=== PATIENT | female | born 1985 | race Caucasian/White ===

== ENCOUNTER → 2016-07-06 | Outpatient (CLI) | payer OTHER ==
[~2016-07-06] VITALS: Ht 162.6 cm; Wt 117.4 kg
[~2016-07-06] MED LIST: ACET-1256 PO; CHOL1000 PO; GABA600T PO; GABA800T PO; GLC/500 PO; HYDR-5688 PO; KPP/1000 PO; TOPI200T14 PO
[2016-07-06 13:46] VITALS: BP 121/75; PULSE 111; Ht 162.6 cm; Wt 117.4 kg
== END | disposition home or self-care (01) ==
LOC: C.NEUR 12:50
PROVIDERS: ATTEND Internal Medicine Pulmonary Disease
DX: R06.83 Snoring (principal); G40.909 Epilepsy, unspecified, not intractable, without status epilepticus; R53.82 Chronic fatigue, unspecified; R06.81 Apnea, not elsewhere classified; F51.12 Insufficient sleep syndrome; G47.00 Insomnia, unspecified

== ENCOUNTER 2016-07-12 18:08 | Emergency (ER) | payer OTHER ==
[~2016-07-12] VITALS: Ht 162.6 cm; Wt 108.0 kg
[~2016-07-12 18:08] MED LIST changes: -ACET-1256 PO; -CHOL1000 PO; -GABA800T PO; -GLC/500 PO; -KPP/1000 PO; -TOPI200T14 PO
[2016-07-12 18:12] VITALS: TEMP 36.8; Ht 162.6 cm; Wt 108.0 kg
[2016-07-12] MEDS ORDERED: CHOL1000 PO (18:27)
[2016-07-12] MEDS ORDERED: KPP/1000 PO (18:27)
[2016-07-12] MEDS ORDERED: OXYCODONE HCL IR 5 MG TAB (IMMEDIATE RELEASE) PO STA (18:36)
[2016-07-12] MEDS ORDERED: GABA800T PO (18:47)
[2016-07-12] MEDS ORDERED: GLC/500 PO (19:06)
[2016-07-12] MEDS ORDERED: TOPI200T14 PO (19:06)
[2016-07-12] MEDS ORDERED: ACET-1256 PO (19:06)
--- NOTE | 2016-07-12 20:04 | DIAGNOSTIC IMAGING REPORT ---
MRI OF THE LUMBAR SPINE WITHOUT CONTRAST CLINICAL HISTORY: Severe lower back and left leg pain. Left leg numbness. COMPARISON STUDY: No previous studies for comparison. TECHNIQUE: Utilizing a 1.5 Ana magnet and dedicated coil, multiplanar, multiecho imaging of the lumbar spine was performed without IV contrast. FINDINGS: For purposes of numbering on this exam, the L5-S1 disc space is assigned to axial image 26 7 of 30. There is slight retrolisthesis of L5 on S1. Alignment is otherwise anatomic. There is cortical irregularity with signal abnormality of the anterior aspect of the superior endplate of L4 which is chronic. This may be developmental or degenerative. The conus terminates at the lower L1 level. There is no intracanalicular mass or fluid collection. Paravertebral soft tissues are unremarkable. There is no marrow edema or marrow replacement. There is desiccation of the L3-L4 disc. There is mild disc space narrowing at L5-S1. L1-2: The central canal and neural foramen are patent. L2-3: The central canal and neural foramen are patent. L3-4: The central canal and neural foramen are patent. L4-5: The central canal and neural foramen are patent. L5-S1: The central canal and neural foramen are patent. IMPRESSION: 1. No acute abnormality of the lumbar spine by MRI. 2. Minimal multilevel degenerative disc disease of the lumbar spine at the L3-L4 and L5-S1 levels. No central canal or neural foraminal stenosis. 3. No disc herniation. Electronically signed by: Iglesia Leon M.D. 07/12/2016 8:02 PM Dictated Date/Time: 07/12/2016 7:59 PM
[2016-07-12 20:41] VITALS: BP 127/63; PULSE 90; O2SAT 99
--- NOTE | 2016-07-12 20:42 | EMERGENCY ROOM VISIT NOTE ---
History Report prepared by Elver: Leonor Rocha Under the Supervision of: Dr. Flavio Mar D.O. First contact with patient: 18:29 Chief Complaint: BACK PAIN Stated Complaint: SEVERE BACK PAIN,LF SIDE IS NUMB History of Present Illness The patient is a 31 year old female who presents to the Emergency Room with complaints of persistent lower back pain that started about one month ago. She rates her discomfort as an 8/10 in severity. She is having difficulty ambulating secondary to the pain. The pain is not relieved with Flexeril. The patient states that she began experiencing the pain after she shoveled snow in the recent heavy snowstorm. She did not experience any falls when she was shoveling snow. The patient is also experiencing left lower extremity numbness and she states that her entire left leg is numb. She denies any urinary symptoms. The patient has established a relationship with [facility] for this pain. She has been undergoing physical therapy and they gave her a back brace, but neither has offered her any relief. The patient states that after the pain started she received a CT scan at the [facility] in [place], but she is unsure of the results. Otherwise, the patient has not received any imaging of her back. The patient has a follow-up appointment with [facility] in three weeks. The patient states that she has a history of epilepsy and chronic migraines. She adds that she is concerned that she might experience a seizure secondary to the pain. Source of History: patient Onset: about one month ago Position: back (lower) Symptom Intensity: 8/10 Timing: other (persistent) Modifying Factors (Relieving): other (none) Associated Symptoms: + numbness (left lower extremity), No urinary symptoms Review of Systems See HPI for pertinent positives & negatives. A total of 10 systems reviewed and were otherwise negative. Past Medical & Surgical Medical Problems: (1) Migraine (2) Seizure Surgical Problems: (1) H/O: hysterectomy Family History Cancer Diabetes mellitus FH: heart disease FHx: gallbladder disease FHx: lung disease Hypertension Kidney disease Kidney stones Seizures Social History Smoking Status: Current Every Day Smoker Alcohol Use: none Marital Status: single Housing Status: lives with family Occupation Status: unemployed Current/Historical Medications Scheduled Cholecalciferol (Vitamin D3), 1,000 INTER.UNIT PO BID Gabapentin (Neurontin), 800 MG PO TID Levetiracetam (Keppra), 1,000 MG PO BID Metformin Hcl (Glucophage), 500 MG PO BID Topiramate (Topamax), 200 MG PO BID Scheduled PRN Acetaminophen (Tylenol), 1,000 MG PO Q6H PRN for Pain Allergies Coded Allergies: Gil (Verified Allergy, Unknown, 08/14/07) Coconut (Verified Allergy, Unknown, 08/14/07) Codeine (Verified Allergy, Unknown, 06/20/09) Ketorolac Tromethamine (Verified Allergy, Unknown, Unknown, 01/29/16) Sulfa Drugs (Verified Allergy, Unknown, 06/20/09) HIVES Tramadol (Verified Allergy, Unknown, Unknown, 01/29/16) Physical Exam Vital Signs Date Time Temp Pulse Resp B/P Pulse Ox O2 Delivery O2 Flow Rate FiO2 07/12/16 20:41 90 16 127/63 99 07/12/16 18:12 36.8 95 18 133/84 96 Room Air Physical Exam GENERAL: Patient is awake, alert, and in no acute distress. Patient is resting comfortably and showing no signs of anxiety EYES: The conjunctivae are clear. The pupils are round and reactive. EARS, NOSE, MOUTH AND THROAT: The nose is without any evidence of any deformity. Mucous membranes are moist tongue is midline NECK: The neck is nontender and supple. RESPIRATORY: Normal respiratory effort is noted there is no evidence of wheezing rhonchi or rales CARDIOVASCULAR: Regular rate and rhythm noted there no murmurs rubs or gallops normal S1 normal S2 GASTROINTESTINAL: The abdomen is soft. Bowel sounds are present in all quadrants. Abdomen is nontender PELVIS: The Pelvis is stable. No tenderness to palpation is noted. BACK: Midline lumbar tenderness to palpation no step-off noted range of motion elicited pain. No CVA tenderness to percussion. MUSCULOSKELETAL/EXTREMITIES: There is no evidence of gross deformity full range of motion is noted in the hips and shoulders SKIN: There is no obvious evidence of any rash. There are no petechiae, pallor or cyanosis noted. NEUROLOGIC: Patient is awake alert and oriented x3. Patellar tendon reflexes are 1+ bilaterally. Achilles reflex 1+ bilaterally. Great toe raises are symmetric. Medical Decision & Procedures ER Provider Diagnostic Interpretation: MRI results as stated below per my review and radiologist interpretation. MRI OF THE LUMBAR SPINE WITHOUT CONTRAST IMPRESSION: 1. No acute abnormality of the lumbar spine by MRI. 2. Minimal multilevel degenerative disc disease of the lumbar spine at the L3-L4 and L5-S1 levels. No central canal or neural foraminal stenosis. 3. No disc herniation. Electronically signed by: Iglesia Leon M.D. 07/12/2016 8:02 PM Dictated Date/Time: 07/12/2016 7:59 PM Medications Administered Medications (Trade) Dose Ordered Sig/Gene Route Start Time Stop Time Status Last Admin Dose Admin Oxycodone HCl (Roxicodone Immediate Rel Tab) 10 mg NOW STAT PO 07/12/16 18:36 07/12/16 18:38 DC 07/12/16 18:57 10 MG ED Course 1831: The patient was evaluated in room B6. A complete history and physical examination were performed. 1835: Ordered Oxycodone HCl 10 mg PO 2011: Upon reevaluation, the patient is doing well. I discussed the results and treatment plan with her. She verbalized agreement of the treatment plan. She was discharged home. Medical Decision Prior records/ancillary studies reviewed. Triage Nursing notes reviewed. The patient's history was concerning for back pain. Differential diagnosis: Etiologies such as musculoskeletal, disc herniation, fracture, aortic disease, metastatic disease, cord compression, discitis, infection, renal colic, gastrointestinal, acute exacerbation of chronic back pain, sciatica, cauda equina, as well as others were entertained. The patient is a 31-year-old female who presented to the emergency department for an evaluation of severe low back pain radiating to her left leg. She was seen previously for the same pain. She states that she had a CAT scan which showed abnormalities. The patient did not have any focal neurologic deficits. She was able to ambulate without difficulty. The patient was treated with pain medication in the emergency department with some relief. The patient had an MRI which did not show any acute abnormality or disc herniation. The patient states that she has been on steroids in the past for this and they have not helped. The patient was encouraged to continue all medications as prescribed and rest. She was also encouraged to call her primary care physician schedule a follow-up appointment. She was also encouraged to continue with physical therapy and return to the emergency Department immediately if symptoms change worsen or the need arises. [place] Drug Monitoring Program Search Results: patient reviewed within database, see additional documentation Drug Monitoring Findings: The patient received two different prescriptions for [place] in June. Impression Primary Impression: Low back pain Additional Impression: Sciatica Scribe Attestation The scribe's documentation has been prepared under my direction and personally reviewed by me in its entirety. I confirm that the note above accurately reflects all work, treatment, procedures, and medical decision making performed by me. Departure Information Dispostion Home / Self-Care Referrals Sandi Pérez D.O. (PCP) Forms HOME CARE DOCUMENTATION FORM, IMPORTANT VISIT INFORMATION Patient Instructions My [facility] Additional Instructions Call your family to schedule a follow-up appointment. Rest and avoid any strenuous activity. Follow-up with your orthopedic this week for reevaluation. Problem Qualifiers Primary Impression: Low back pain Chronicity: unspecified Back pain laterality: midline Sciatica presence: with sciatica Sciatica laterality: sciatica of left side Qualified Codes: M54.42 - Lumbago with sciatica, left side Additional Impression: Sciatica Laterality: left Qualified Codes: M54.32 - Sciatica, left side
== END 2016-07-12 21:03 | disposition home or self-care (01) ==
LOC: C.EDB 18:10
DX: M54.42 Lumbago with sciatica, left side (principal); G40.909 Epilepsy, unspecified, not intractable, without status epilepticus; Z90.710 Acquired absence of both cervix and uterus; Z82.49 Family history of ischemic heart disease and other diseases of the circulatory system; Z83.3 Family history of diabetes mellitus; Z82.0 Family history of epilepsy and other diseases of the nervous system; F17.210 Nicotine dependence, cigarettes, uncomplicated; Z79.899 Other long term (current) drug therapy

== ENCOUNTER 2017-02-08 21:57 | Emergency (ER) | payer OTHER ==
[~2017-02-08] VITALS: Ht 162.6 cm; Wt 116.6 kg
[~2017-02-08 21:57] MED LIST changes: +ACET-1256 PO; +CHOL1000 PO; -GABA600T PO; +GABA800T PO; +GLC/500 PO; -HYDR-5688 PO; +KPP/1000 PO; +TOPI200T14 PO
[2017-02-08 22:00] VITALS: TEMP 36.6; Ht 162.6 cm; Wt 116.6 kg
[2017-02-08] MEDS ORDERED: SODIUM CHLORIDE 0.9% 1000ML 1,000 ML IV ONE (22:30)
[2017-02-08 23:09] LABS: BASO % 0.4 %; BASO ABS # 0.03 K/uL (0-0.2); COMPLETE YES; EOS % 2.1 %; HEMATOCRIT 37.7 % (37-47); IG% 0.1 %; LYMPH % 40.3 %; LYMPH ABS # 2.84 K/uL (1.2-3.4); MEAN CELL VOLUME 80.7 fL (80-100); MEAN CORPUSCULAR HEMOGLOBIN 25.9 pg (25-34); MEAN CORPUSCULAR HGB CONC 32.1 g/dl (32-36); MEAN PLATELET VOLUME 10.1 fL (7.4-10.4); MONO % 6.7 %; NEUT % 50.4 %; PLATELET COUNT 240 K/uL (130-400); RED BLOOD COUNT 4.67 M/uL (4.2-5.4); WHITE BLOOD COUNT 7.04 K/uL (4.8-10.8)
[2017-02-08 23:12] LABS: PROTHROMBIN TIME (PATIENT) 10.6 SECONDS (9.0-12.0)
[2017-02-08 23:19] LABS: BUN/CREATININE RATIO 18.7 (10-20); CALCIUM 8.6 mg/dl (8.5-10.1); CREATININE 0.73 mg/dl (0.60-1.20); POTASSIUM 3.8 mmol/L (3.5-5.1)
[2017-02-08 23:29] LABS: ALB/GLOB RATIO 0.9 (0.9-2); THYROID STIMULATING HORMONE 2.15 uIu/ml (0.300-4.500)
[2017-02-09 01:23] VITALS: BP 132/70; PULSE 78; O2SAT 99
--- NOTE | 2017-02-09 04:15 | EMERGENCY ROOM VISIT NOTE ---
History First contact with patient: 22:04 Chief Complaint: VAGINAL BLEEDING Stated Complaint: HEAVY BLEEDING,SEVERE PAIN,DIZZY,WEAK History of Present Illness The patient is a 31 year old female who presents to the Emergency Room with complaints of vaginal bleeding for the past 4 or 5 days. The patient states that she has a history of polycystic ovarian syndrome, and typically has irregular menses. She began with some cramping and normal menstrual symptoms 5 days ago. She had light bleeding for 1-2 days, then heavy bleeding for 2 days. The patient states that her normal cycle only lasts for about 4 days when it occurs. She states that today, on day 5, she has been soaking through 1 pad every 20 minutes, and now feels lightheaded and weak. The patient denies chance of as she had a tubal ligation. She has not had fever, chills , chest pain, chest discomfort, or significant abdominal pain. She has taken Tylenol for her symptoms without improvement. She states that she called the on -call PAROLE DIRECTOR for her group, and was referred to the ER for evaluation. She rates her current discomfort a 7/10. Review of Systems More than 10 systems were reviewed and otherwise negative with the exception of history of present illness. Past Medical/Surgical History Medical Problems: (1) Migraine (2) Seizure Surgical Problems: (1) H/O: hysterectomy Family History Cancer Diabetes mellitus FH: heart disease FHx: gallbladder disease FHx: lung disease Hypertension Kidney disease Kidney stones Seizures Social History Smoking Status: Never Smoker Alcohol Use: none Marital Status: single Housing Status: lives with family Occupation Status: unemployed Current/Historical Medications Scheduled Cholecalciferol (Vitamin D3), 1,000 INTER.UNIT PO BID Gabapentin (Neurontin), 800 MG PO TID Levetiracetam (Keppra), 1,000 MG PO BID Metformin Hcl (Glucophage), 500 MG PO BID Topiramate (Topamax), 200 MG PO BID Scheduled PRN Acetaminophen (Tylenol), 1,000 MG PO Q6H PRN for Pain Physical Exam Vital Signs Date Time Temp Pulse Resp B/P (MAP) Pulse Ox O2 Delivery O2 Flow Rate FiO2 02/09/17 01:23 78 18 132/70 99 02/08/17 23:44 73 18 130/78 100 Room Air 02/08/17 22:00 36.6 90 16 113/75 100 Room Air Physical Exam VITALS: Vitals are noted on the nurse's note and reviewed by myself. Vital signs stable. GENERAL: Well-developed, well-nourished, white female, who is in no acute distress and resting comfortably. Patient is cooperative with the examination. HEART: Regular rate and rhythm without murmurs gallops or rubs. LUNGS: Clear to auscultation bilaterally without wheezes, rales or rhonchi. No retractions or accessory muscle use. ABDOMEN: Positive normal bowel sounds x 4. Soft, nontender, without masses or organomegaly. No guarding or rebound tenderness. MUSCULOSKELETAL: No muscle atrophy, erythema, or edema noted. Full range of motion without joint tenderness in all extremities. Medical Decision & Procedures ER Provider Diagnostic Interpretation: Preliminary Findings Only See Final Report For Complete Findings US PELVIC/ENDOVAG: Complex left ovarian cyst measuring up to 3.7 cm with suggestion of mural nodule or thick septation. Consider followup imaging. Bilateral ovarian flow visualized. Thickened endometrium measuring up to 2.2 cm. Fluid noted in the endometrial canal. Laboratory Results 02/08/17 22:51 Red Blood Count 4.67, Mean Corpuscular Volume 80.7, Mean Corpuscular Hemoglobin 25.9, Mean Corpuscular Hemoglobin Concent 32.1, Mean Platelet Volume 10.1, Neutrophils (%) (Auto) 50.4, Lymphocytes (%) (Auto) 40.3, Monocytes (%) (Auto) 6.7, Eosinophils (%) (Auto) 2.1, Basophils (%) (Auto) 0.4, Neutrophils # (Auto) 3.54, Lymphocytes # (Auto) 2.84, Monocytes # (Auto) 0.47, Eosinophils # (Auto) 0.15, Basophils # (Auto) 0.03 02/08/17 22:51 Test 02/08/17 22:51 White Blood Count 7.04 K/uL (4.8-10.8) Red Blood Count 4.67 M/uL (4.2-5.4) Hemoglobin 12.1 g/dL (12.0-16.0) Hematocrit 37.7 % (37-47) Mean Corpuscular Volume 80.7 fL (80-100) Mean Corpuscular Hemoglobin 25.9 pg (25-34) Mean Corpuscular Hemoglobin Concent 32.1 g/dl (32-36) Platelet Count 240 K/uL (130-400) Mean Platelet Volume 10.1 fL (7.4-10.4) Neutrophils (%) (Auto) 50.4 % Lymphocytes (%) (Auto) 40.3 % Monocytes (%) (Auto) 6.7 % Eosinophils (%) (Auto) 2.1 % Basophils (%) (Auto) 0.4 % Neutrophils # (Auto) 3.54 K/uL (1.4-6.5) Lymphocytes # (Auto) 2.84 K/uL (1.2-3.4) Monocytes # (Auto) 0.47 K/uL (0.11-0.59) Eosinophils # (Auto) 0.15 K/uL (0-0.5) Basophils # (Auto) 0.03 K/uL (0-0.2) RDW Standard Deviation 43.3 fL (36.4-46.3) RDW Coefficient of Variation 14.8 % (11.5-14.5) Immature Granulocyte % (Auto) 0.1 % Immature Granulocyte # (Auto) 0.01 K/uL (0.00-0.02) Prothrombin Time 10.6 SECONDS (9.0-12.0) Prothromb Time International Ratio 1.0 (0.9-1.1) Activated Partial Thromboplast Time 25.1 SECONDS (21.0-31.0) Partial Thromboplastin Ratio 1.0 Anion Gap 9.0 mmol/L (3-11) Est Creatinine Clear Calc Drug Dose 137.5 ml/min Estimated GFR () 125.4 Estimated GFR (Non- 108.2 BUN/Creatinine Ratio 18.7 (10-20) Calcium Level 8.6 mg/dl (8.5-10.1) Total Bilirubin 0.2 mg/dl (0.2-1) Aspartate Amino Transf (AST/SGOT) 14 U/L (15-37) Alanine Aminotransferase (ALT/SGPT) 32 U/L (12-78) Alkaline Phosphatase 60 U/L (45-117) Total Protein 7.0 gm/dl (6.4-8.2) Albumin 3.4 gm/dl (3.4-5.0) Globulin 3.6 gm/dl (2.5-4.0) Albumin/Globulin Ratio 0.9 (0.9-2) Thyroid Stimulating Hormone (TSH) 2.150 uIu/ml (0.300-4.500) Medications Administered Medications (Trade) Dose Ordered Sig/Gene Route Start Time Stop Time Status Last Admin Dose Admin Sodium Chloride 1,000 ml @ 999 mls/hr Q1H1M ONCE IV 02/08/17 22:30 02/08/17 23:30 DC 02/08/17 22:30 999 MLS/HR ED Course Physical exam and history were performed. Nursing notes, EMR, and Medication List were personally reviewed. Patient appears to have vaginal bleeding for 5 days that appears different from her normal menstrual cycle. She does not have concern for STDs and prefers to defer pelvic exam unless absolutely necessary. She is reporting dizziness and weakness. IV access was established and labs were obtained. She was hydrated with normal saline. Ultrasound was performed. The patient's blood work does not show significantly elevated white blood cell count, gross anemia, bandemia, or significant electrolyte imbalance. Ultrasound does reveal ovarian cysts that will need nonemergent follow-up. Additionally no significant emergent finding is noted on ultrasound report. On reevaluation the patient appears very comfortable and certainly is not toxic. Despite being in the emergency department for several hours she did not need to change her pad while under our care. She is not anemic and the ultrasound is reassuring. The patient appears stable for discharge home and will be asked to follow-up with PAROLE DIRECTOR for further care and management. She was otherwise invited back to the ER with any new, worsening, or concerning symptoms. The chart was completed utilizing [employer] Speech Voice Recognition Software. Grammatical errors, random word insertions, pronoun errors, and incomplete sentences are an occasional consequence of this system due to software limitations, ambient noise, and hardware issues. Any formal questions or concerns about the content, text, or information contained within the body of this dictation should be directly addressed to the provider for clarification. . Medical Decision Differential diagnosis: Etiologies such as ectopic , dysfunction uterine bleeding, bleeding dyscrasia, trauma, infection, as well as others were entertained. Medication Reconcilliation Current Medication List: was personally reviewed by me Blood Pressure Screening Patient's blood pressure: Normal blood pressure Impression Primary Impression: Vaginal bleeding Departure Information Dispostion Home / Self-Care Condition GOOD Referrals Sandi Pérez D.O. (PCP) Forms HOME CARE DOCUMENTATION FORM, IMPORTANT VISIT INFORMATION Patient Instructions My [facility] Additional Instructions You were seen and evaluated today on an emergency basis only. This is not a substitute for, or an effort to provide, complete comprehensive medical care. It is not possible to recognize and treat all injuries or illnesses in a single emergency department visit. For this reason it is recommended that you followup with your PAROLE DIRECTOR by telephone in the morning to arrange a follow-up appointment. Let them know you were seen in the ER to help make arrangements. For baseline pain relief you may alternate ibuprofen and acetaminophen every 4 hours for pain control. Take 600 mg ibuprofen (Advil) and then 4 hours later take 1000 mg acetaminophen (Tylenol). Do not take more than 3000 mg acetaminophen in a single day. You are welcome to return to the emergency department anytime with new, worsening, or concerning symptoms.
--- NOTE | 2017-02-09 07:23 | DIAGNOSTIC IMAGING REPORT ---
PELVIC ULTRASOUND, TRANSABDOMINAL AND TRANSVAGINAL HISTORY: Vaginal bleeding COMPARISON: None. FINDINGS: Uterus: 7.7 x 4.4 x 6.7 cm. The uterus is retroflexed. A small nabothian cyst. Endometrial stripe: Thickened and heterogeneous measuring of 2 cm. Right ovary: Normal in size and demonstrates normal color flow. Left ovary: A 3.7 x 3.7 x 2.9 cm cystic lesion within the left ovary which contains a mural nodule. This nodule demonstrates vascular flow. Therefore, this is concerning for a cystic lesion. Miscellaneous:No pelvic free fluid. IMPRESSION: 1. Thickened endometrial stripe with complex fluid suggestive of blood products. Gynecologic consultation is recommended to exclude an underlying lesion. At a minimum, 6-8 week pelvic ultrasound follow up is recommended. 2. A dominant 3.7 cm cystic lesion within the left ovary which contains a mural nodule. This is concerning for an ovarian neoplasm given the color flow and a nodule. However, some of this could be artifactual. Therefore, this also requires gynecologic consultation and a 6-8 week pelvic ultrasound follow-up to ensure resolution. Electronically signed by: Jg Garcia M.D. 02/09/2017 7:22 AM Dictated Date/Time: 02/09/2017 7:18 AM
== END 2017-02-09 01:24 | disposition home or self-care (01) ==
LOC: C.EDB 21:58
DX: N93.9 Abnormal uterine and vaginal bleeding, unspecified (principal); G40.909 Epilepsy, unspecified, not intractable, without status epilepticus; Z90.710 Acquired absence of both cervix and uterus; Z79.84 Long term (current) use of oral hypoglycemic drugs; R42 Dizziness and giddiness; Z79.899 Other long term (current) drug therapy; Z80.9 Family history of malignant neoplasm, unspecified; Z83.3 Family history of diabetes mellitus; Z82.49 Family history of ischemic heart disease and other diseases of the circulatory system; Z83.79 Family history of other diseases of the digestive system; Z84.1 Family history of disorders of kidney and ureter; Z82.0 Family history of epilepsy and other diseases of the nervous system

== ENCOUNTER 2017-05-01 18:08 | Emergency (ER) | payer OTHER ==
[~2017-05-01] VITALS: Ht 162.6 cm; Wt 123.6 kg
[~2017-05-01 18:08] MED LIST changes: -ACET-1256 PO; -CHOL1000 PO; -GABA800T PO; -KPP/1000 PO; -TOPI200T14 PO
[2017-05-01 18:12] VITALS: TEMP 36.4; Ht 162.6 cm; Wt 123.6 kg
[2017-05-01] MEDS ORDERED: MAGNESIUM SULFATE 1GM / D5W 1 GM in PREMIXED IN D5W 100 ML IV STA (18:24)
[2017-05-01] MEDS ORDERED: DiphenhydrAMINE HCL 50 MG/ML VIAL IV STA (18:24)
[2017-05-01] MEDS ORDERED: SODIUM CHLORIDE 0.9% 500ML 500 ML IV STA (18:24)
[2017-05-01] MEDS ORDERED: PROCHLORPERAZINE 5 MG/ML 2 ML VIAL IV STA (18:24)
[2017-05-01] MEDS ORDERED: DEXAMETHASONE INJ 10 MG in SYRINGE 0 ML IV STA (18:24)
[2017-05-01] MEDS ORDERED: KPP/1000 PO (18:27)
[2017-05-01] MEDS ORDERED: CHOL1000 PO (18:27)
--- NOTE | 2017-05-01 18:32 | EMERGENCY ROOM VISIT NOTE ---
History Report prepared by Elver: Suad Morejon Under the Supervision of: Dr. Johnnie Philippe M.D. First contact with patient: 18:17 Chief Complaint: HEAD PAIN Stated Complaint: LEFT SIDE CAN'T SEE OUT OF EYE, ADVENT, TEETH PAIN History of Present Illness The patient is a 32 year old female who presents to the Emergency Room with complaints of constant left eye pain beginning 1 week ago. The patient states that she has been having severe pain and pressure in the left side of her face. She reports that she thought that the pain might be from her sinuses as she has had sick contacts with congestion recently but the pain has not been relieved. She notes that she is now having pain in her jaw and muslim. The patient complains of right eye blurriness and pain behind the eye. She states that her pain is worsened by bending down and applying pressure to the area. She notes that she has a history of seizures and takes Keppra and Neurontin. She last had a seizure 1 week ago and fell off of a couch just before her symptoms began. Source of History: patient Onset: 1 week ago Position: eye (right) Quality: ache Timing: constant Note: The patient complains of right muslim pain, facial pain, and vision blurring in the right eye. Review of Systems See HPI for pertinent positives & negatives. A total of 10 systems reviewed and were otherwise negative. Past Medical & Surgical Medical Problems: (1) Migraine (2) Seizure Surgical Problems: (1) H/O: hysterectomy Family History Cancer Diabetes mellitus FH: heart disease FHx: gallbladder disease FHx: lung disease Hypertension Kidney disease Kidney stones Seizures Social History Smoking Status: Former Smoker Alcohol Use: none Marital Status: single Housing Status: lives with family Occupation Status: unemployed Current/Historical Medications Scheduled Amoxicillin & Pot Clavulanate (Augmentin 875-125 mg), 1 TAB PO BID Cholecalciferol (Vitamin D3), 1,000 INTER.UNIT PO BID Gabapentin (Neurontin), 800 MG PO TID Levetiracetam (Keppra), 1,000 MG PO BID Topiramate (Topamax), 200 MG PO BID Scheduled PRN Acetaminophen (Tylenol), 1,000 MG PO Q6H PRN for Pain Allergies Coded Allergies: Gil (Verified Allergy, Unknown, 08/14/07) Coconut (Verified Allergy, Unknown, 02/08/17) Codeine (Verified Allergy, Unknown, 06/20/09) Ketorolac Tromethamine (Verified Allergy, Unknown, Unknown, 02/08/17) Sulfa Drugs (Verified Allergy, Unknown, 02/08/17) HIVES Tramadol (Verified Allergy, Unknown, Unknown, 02/08/17) Physical Exam Vital Signs Date Time Temp Pulse Resp B/P (MAP) Pulse Ox O2 Delivery O2 Flow Rate FiO2 05/01/17 19:29 89 16 131/74 97 Room Air 05/01/17 18:12 36.4 116 18 140/82 95 Room Air Physical Exam GENERAL: Patient is a healthy-appearing well-nourished female HEAD: Normocephalic atraumatic, tender to left temporal area EYES: Ocular movements intact pupils equal and react to light OROPHARYNX mucous membranes are moist no exudates present no erythema or edema present NECK: Supple no nuchal rigidity, no evidence of meningitis or encephalitis on exam CHEST: Good equal expansion LUNGS: Clear and equal to auscultation CARDIAC: Normal S1 and S2 ABDOMEN: Soft nontender no guarding BACK: No CVA tenderness EXTREMITIES: No pain upon palpation normal muscle strength in all groups no clubbing cyanosis or edema NEURO: Patient is following commands and answering questions appropriately. Alert and oriented x3 Cranial Nerves 2-12 grossly intact Medical Decision & Procedures ER Provider Diagnostic Interpretation: Radiology results as stated below per my review and radiologist interpretation: HEAD WITHOUT CONTRAST (CT) FINDINGS: Berry Picker topogram: Unremarkable. Ventricles and sulci normal in size. Brain parenchyma normal in appearance with preserved nichols-white differentiation. No mass effect or midline shift. No hemorrhage or acute territorial infarct. No extra-axial fluid collection. Partial opacification of the left frontal sinus, left ethmoid air cells, and left maxillary sinus with secretions that demonstrate a crenulated fluid level. IMPRESSION: 1. No acute intracranial abnormality. 2. Findings consistent with acute sinusitis of the left frontal sinus, left ethmoid air cells, left maxillary sinus. Electronically signed by: Dougie Friend M.D. 05/01/2017 7:12 PM Dictated Date/Time: 05/01/2017 7:10 PM Laboratory Results 05/01/17 18:52 Red Blood Count 4.49, Mean Corpuscular Volume 80.6, Mean Corpuscular Hemoglobin 27.2, Mean Corpuscular Hemoglobin Concent 33.7, Mean Platelet Volume 10.2, Neutrophils (%) (Auto) 50.1, Lymphocytes (%) (Auto) 43.0, Monocytes (%) (Auto) 5.2, Eosinophils (%) (Auto) 1.0, Basophils (%) (Auto) 0.4, Neutrophils # (Auto) 3.92, Lymphocytes # (Auto) 3.36, Monocytes # (Auto) 0.41, Eosinophils # (Auto) 0.08, Basophils # (Auto) 0.03 05/01/17 18:52 Test 05/01/17 18:52 White Blood Count 7.82 K/uL (4.8-10.8) Red Blood Count 4.49 M/uL (4.2-5.4) Hemoglobin 12.2 g/dL (12.0-16.0) Hematocrit 36.2 % (37-47) Mean Corpuscular Volume 80.6 fL (80-100) Mean Corpuscular Hemoglobin 27.2 pg (25-34) Mean Corpuscular Hemoglobin Concent 33.7 g/dl (32-36) Platelet Count 255 K/uL (130-400) Mean Platelet Volume 10.2 fL (7.4-10.4) Neutrophils (%) (Auto) 50.1 % Lymphocytes (%) (Auto) 43.0 % Monocytes (%) (Auto) 5.2 % Eosinophils (%) (Auto) 1.0 % Basophils (%) (Auto) 0.4 % Neutrophils # (Auto) 3.92 K/uL (1.4-6.5) Lymphocytes # (Auto) 3.36 K/uL (1.2-3.4) Monocytes # (Auto) 0.41 K/uL (0.11-0.59) Eosinophils # (Auto) 0.08 K/uL (0-0.5) Basophils # (Auto) 0.03 K/uL (0-0.2) RDW Standard Deviation 41.4 fL (36.4-46.3) RDW Coefficient of Variation 14.1 % (11.5-14.5) Immature Granulocyte % (Auto) 0.3 % Immature Granulocyte # (Auto) 0.02 K/uL (0.00-0.02) Red Blood Cell Morphology Unremarkable Erythrocyte Sedimentation Rate 51 mm/hr (0-21) Anion Gap 9.0 mmol/L (3-11) Est Creatinine Clear Calc Drug Dose 114.4 ml/min Estimated GFR () 96.7 Estimated GFR (Non- 83.4 BUN/Creatinine Ratio 14.4 (10-20) Calcium Level 8.4 mg/dl (8.5-10.1) Total Bilirubin 0.1 mg/dl (0.2-1) Direct Bilirubin < 0.1 mg/dl (0-0.2) Aspartate Amino Transf (AST/SGOT) 15 U/L (15-37) Alanine Aminotransferase (ALT/SGPT) 21 U/L (12-78) Alkaline Phosphatase 71 U/L (45-117) C-Reactive Protein 0.96 mg/dl (0-0.29) Total Protein 7.5 gm/dl (6.4-8.2) Albumin 3.4 gm/dl (3.4-5.0) Lipase 439 U/L (73-393) Labs reviewed by ED physician. Medications Administered Medications (Trade) Dose Ordered Sig/Gene Route Start Time Stop Time Status Last Admin Dose Admin Sodium Chloride 500 ml @ 999 mls/hr Q31M STAT IV 05/01/17 18:24 05/01/17 18:54 DC 05/01/17 19:27 999 MLS/HR Dexamethasone Sodium Phosphate 10 mg/Syringe 2.5 ml @ 1 mls/min NOW STAT IV 05/01/17 18:24 05/01/17 18:27 DC 05/01/17 19:27 1 MLS/MIN Prochlorperazine Edisylate (Compazine Inj) 10 mg NOW STAT IV 05/01/17 18:24 05/01/17 18:27 DC 05/01/17 19:27 10 MG Diphenhydramine HCl (Benadryl Inj) 50 mg NOW STAT IV 05/01/17 18:24 05/01/17 18:27 DC 05/01/17 19:26 50 MG Magnesium Sulfate 1 gm/Prmx 100 ml @ 100 mls/hr NOW STAT IV 05/01/17 18:24 05/01/17 19:23 DC 05/01/17 19:27 100 MLS/HR Amoxicillin/ Clavulanate Potassium (Augmentin Tab) 875 mg ONE ONCE PO 05/01/17 19:30 05/01/17 19:31 DC 05/01/17 19:53 875 MG Sodium Chloride ([place] Nasal [place]) 2 sprays NOW STAT NA 05/01/17 19:23 05/01/17 19:24 DC 05/01/17 19:53 2 SPRAYS ED Course 1816: Past medical records reviewed. The patient was evaluated in room A9. A complete history and physical examination was performed. 1823: Magnesium Sulfate 1gm/Prmx 100ml @ 100mls/hr IV, Benadryl Inj 50mg IV, Compazine Inj 10mg IV, Dexamethasone Sodium Phosphate 10mg/Syringe 2.5ml @ 1mls/ min IV, Sodium Chloride 500 ml @ 999 mls/hr IV. 1922: Sodium Chloride 2 sprays NA. 1929: Augmentin Tab 875mg PO. 2001: I reevaluated and updated the patient. 2011: Upon reexamination the patient is doing well. I discussed results and treatment plan with the patient. She verbalizes agreement and understanding. The patient is ready for discharge. Medical Decision This is a 32-year-old female who presents emergency department complaining of left-sided headache. The patient does not appear to have any evidence of temporal arteritis on examination and has no evidence of facial cellulitis. She has no evidence of Ezio's angina on examination. In addition the patient does not have an elevation in her white blood count cell count. She has no evidence of meningitis encephalitis on examination. An IV was established, the patient is given Decadron, Compazine, Benadryl. The patient's CAT scan is concerning for sinusitis and I will place the patient on Augmentin and stressed nasal spray. I do feel she is well enough to be discharged home however I gave her strict instructions to return if she develops fevers or severe neck pain with the headache. I also stressed the need for follow-up with patient's dentist. Patient was in agreement with the treatment plan. Medication Reconcilliation Current Medication List: was personally reviewed by me Blood Pressure Screening Patient's blood pressure: Elevated blood pressure Blood pressure disposition: Elevated BP felt to be situational Impression Primary Impression: Sinusitis Additional Impression: Pain, dental Scribe Attestation The scribe's documentation has been prepared under my direction and personally reviewed by me in its entirety. I confirm that the note above accurately reflects all work, treatment, procedures, and medical decision making performed by me. Departure Information Dispostion Home / Self-Care Prescriptions Amoxicillin & Pot Clavulanate (Augmentin 875-125 mg) 1 Tab Tab 1 TAB PO BID for 10 Days, #20 TAB Prov: Johnnie Philippe MD 05/01/17 Referrals No Doctor, Assigned (PCP) Forms HOME CARE DOCUMENTATION FORM, IMPORTANT VISIT INFORMATION, WORK / SCHOOL INSTRUCTIONS Patient Instructions My [facility], Sinusitis Acute, Sinusitis Prevent, Sinusitis Self Care Additional Instructions Follow up with DR Sidhu's office NEED FOLLOW UP WITH DENTIST FOR DENTAL PAIN Follow up with Dr Mack's office Need to return if severe headache or or neck pain occur You were found to have an elevated blood pressure today (>120 sytolic or >90 diastolic). Per medicare guidelines, you need to follow up with this blood pressure screening with your Primary Care Physician (PCP). For a new PCP call [phone]. Take 600 mg Ibuprofen every 6 hours Take 1000 mg Tylenol every 6 hours You have been examined and treated today on an emergency basis only. This is not a substitute for, or an effort to provide, complete comprehensive medical care. It is impossible to recognize and treat all injuries or illnesses in a single emergency department visit. It is therefore important that you follow up closely with your PCP. Call as soon as possible for an appointment. Thank you for your time and consideration. I look forward to speaking with you again soon. Please don't hesitate to call us if you have any questions. Problem Qualifiers Primary Impression: Sinusitis Sinusitis location: frontal Chronicity: acute Recurrence: not specified as recurrent Qualified Codes: J01.10 - Acute frontal sinusitis, unspecified
[2017-05-01] MEDS ORDERED: GABA800T PO (18:47)
[2017-05-01] MEDS ORDERED: ACET-1256 PO (19:06)
[2017-05-01] MEDS ORDERED: TOPI200T14 PO (19:06)
[2017-05-01 19:07] LABS: HEMATOCRIT 36.2 % (37-47); MEAN CELL VOLUME 80.6 fL (80-100); MEAN CORPUSCULAR HEMOGLOBIN 27.2 pg (25-34); MEAN CORPUSCULAR HGB CONC 33.7 g/dl (32-36); MEAN PLATELET VOLUME 10.2 fL (7.4-10.4); PLATELET COUNT 255 K/uL (130-400); RED BLOOD COUNT 4.49 M/uL (4.2-5.4); WHITE BLOOD COUNT 7.82 K/uL (4.8-10.8)
--- NOTE | 2017-05-01 19:13 | DIAGNOSTIC IMAGING REPORT ---
HEAD WITHOUT CONTRAST (CT) CLINICAL HISTORY: 32 years-old Female presenting with Pt c/o left sided head pain . TECHNIQUE: Multidetector CT imaging of the head was performed without the use of intravenous contrast. IV contrast: None. A dose lowering technique was used consistent with the principles of ALARA (as low as reasonably achievable). COMPARISON: None. CT DOSE (mGy.cm): The estimated cumulative dose is 460.70 mGy.cm. FINDINGS: Fire Tender topogram: Unremarkable. Ventricles and sulci normal in size. Brain parenchyma normal in appearance with preserved nichols-white differentiation. No mass effect or midline shift. No hemorrhage or acute territorial infarct. No extra-axial fluid collection. Partial opacification of the left frontal sinus, left ethmoid air cells, and left maxillary sinus with secretions that demonstrate a crenulated fluid level. IMPRESSION: 1. No acute intracranial abnormality. 2. Findings consistent with acute sinusitis of the left frontal sinus, left ethmoid air cells, left maxillary sinus. Electronically signed by: Dougie Friend M.D. 05/01/2017 7:12 PM Dictated Date/Time: 05/01/2017 7:10 PM
[2017-05-01] MEDS ORDERED: SODIUM CHLORIDE 0.65% NA SOLN 45 ML (OCEAN) STA (19:23)
[2017-05-01 19:29] VITALS: BP 131/74; PULSE 89; O2SAT 97
[2017-05-01] MEDS ORDERED: AMOXICILLIN/CLAVULANATE TAB 875 MG TAB PO ONE (19:30)
[2017-05-01 19:32] LABS: ALT/SGPT 21 U/L (12-78); AST/SGOT 15 U/L (15-37); BLOOD UREA NITROGEN 13 mg/dl (7-18); BUN/CREATININE RATIO 14.4 (10-20); C-REACTIVE PROTEIN 0.96 mg/dl (0-0.29); CALCIUM 8.4 mg/dl (8.5-10.1); CARBON DIOXIDE 23 mmol/L (21-32); CHLORIDE 107 mmol/L (98-107); GLUCOSE 187 mg/dl (70-99); POTASSIUM 3.7 mmol/L (3.5-5.1); SODIUM 139 mmol/L (136-145)
[2017-05-01 19:35] LABS: ALKALINE PHOSPHATASE 71 U/L (45-117)
[2017-05-01 19:42] LABS: BASO % 0.4 %; BASO ABS # 0.03 K/uL (0-0.2); COMPLETE YES; IG% 0.3 %; LYMPH ABS # 3.36 K/uL (1.2-3.4); MONO % 5.2 %; NEUT % 50.1 %
[2017-05-01] MEDS ORDERED: AMOX875T PO (20:08)
== END 2017-05-01 20:32 | disposition home or self-care (01) ==
LOC: C.EDB 18:09 → C.EDA 20:32
DX: J01.10 Acute frontal sinusitis, unspecified (principal); J01.20 Acute ethmoidal sinusitis, unspecified; J01.00 Acute maxillary sinusitis, unspecified; K08.89 Other specified disorders of teeth and supporting structures; G40.909 Epilepsy, unspecified, not intractable, without status epilepticus; G43.909 Migraine, unspecified, not intractable, without status migrainosus; Z87.891 Personal history of nicotine dependence; Z80.9 Family history of malignant neoplasm, unspecified; Z83.3 Family history of diabetes mellitus; Z82.49 Family history of ischemic heart disease and other diseases of the circulatory system; Z83.79 Family history of other diseases of the digestive system; Z84.1 Family history of disorders of kidney and ureter; Z82.0 Family history of epilepsy and other diseases of the nervous system